=== PATIENT | male | born 1975 | race Caucasian/White ===

== ENCOUNTER 2023-02-24 03:51 | Emergency (ER) | payer SELFPAY ==
[2023-02-24 03:55] VITALS: BP 127/84; PULSE 67; RESP 17; TEMP 36.7; O2SAT 98; BMI 22.0
--- NOTE | 2023-02-24 04:39 | HMH.EDMCLR ---
Discharge Plan Disposition Chief Complaint: Medical Clearance Prescriptions Prescriptions: No Action No Known Home Medications Referrals Follow up/Referrals: Provider,Referral, [Primary Care Provider] - See instructions Clinical Impressions Clinical Impression: Medical clearance for incarceration Discharge ED Provider: Lupis PLAZA)Dimitri Medical Clearance [facility] General Chief complaint: Medical Clearance Stated complaint: Medical clearance,blood draw Time Seen by Provider: 02/24/23 04:15 Mode of Arrival: Ambulatory Source of Information: Patient, Law Enforcement and Medical Record Limitations: No Limitations Description of Symptoms (Recalled from ER Triage Doc. by RN): Pt presented to ER by [facility] [employer] fo a medical clearance. Pt denies any complaints. PD would like a medical blood drawn as well & lab was notified. History of Present Illness HPI Narrative: pt reports doing ok MD complaint: medical clearance requested Alleged Intoxication: Yes Traumatic Symptoms: denies traumatic injury Associated Symptoms: denies other symptoms Home Medications Medication Instructions Recorded Confirmed No Known Home Medications 02/24/23 02/24/23 Allergies Allergy/AdvReac Type Severity Reaction Status Date / Time Penicillins Allergy Severe Anaphylaxis Verified 02/24/23 04:39 [facility] Disclaimer: The information contained in this section may have been updated after the patient was seen, as this information can be updated by other users. Social History Smoking Status: Current every day smoker alcohol intake: current current occupational status: unemployed Travel in the last 8 weeks: None ROS Obtained: Yes All systems reviewed & no additional complaints except as documented Physical Exam General General appearance: alert Head Head exam: normocephalic Eye Eye exam: Present PERRL and EOMI ENT ENT exam: Present mucous membranes moist Neck Neck exam: Present trachea midline Respiratory Respiratory exam: Absent respiratory distress Cardiovascular Cardiovascular exam: Present regular rate Extremities Exam Extremities exam: Present full ROM Neurological Exam Neurological exam: Present alert and CN II-XII intact Skin Skin exam: Absent rash Medical Decision Making Medical Records Medical records reviewed: Yes I reviewed the patient's medical records. He Inquiry Pt receiving controlled substance: No Vital Signs: 02/24/23 03:55 Temperature 98.1 F Temperature Source Oral Pulse Rate [Right] 67 Respiratory Rate 17 Blood Pressure [Right Arm] 127/84 Blood Pressure Mean [Right Arm] 98 Blood Pressure Source [Right Arm] Automatic Cuff 02 Sat by Pulse Oximetry 98 Oxygen Delivery Method Room Air Medical Decision Narrative: stable exam and released with police Critical Care Time Critical Care Time Critical Care Time: No Attestation: On 02/24/23, the high probability of a clinically significant, sudden or life threatening deterioration of the following system(s) required my full and direct attention, intervention and personal management. The time I documented below is in addition to time spent performing reported procedures but includes the following listed in this critical care notation.
[2023-02-24 04:50] VITALS: BP 125/80; PULSE 78; RESP 18; TEMP 36.7; O2SAT 98
== END 2023-02-24 04:51 ==
PROVIDERS: Emergency Provider Emergency Medicine
DX: Z02.89 Encounter for other administrative examinations (principal); F17.200 Nicotine dependence, unspecified, uncomplicated
CPT/HCPCS: 99281; 99282